=== PATIENT | female | born 1985 | race Caucasian/White ===

== ENCOUNTER → 2024-10-29 | Outpatient (CLI) | payer OTHER, SELFPAY ==
[2024-10-29 18:00] LABS: Basophils % (Auto) 0 % (0-2.5); Eosinophils # (Auto) 0.2 Thou/mm3 (0.0-0.5); Eosinophils % (Auto) 2 % (0-10); Hematocrit 38.1 % (36.0-46.0); Hemoglobin 11.7 g/dL (12.0-16.0); Immature Granulocytes % (Auto) 0 % (0-0); Immature Granulocytes Auto 0.04 Thou/mm3 (0.00-0.00); Lymphocytes # (Auto) 2.5 Thou/mm3 (1.0-4.8); Lymphocytes % (Auto) 19 % (10-50); Mean Corpuscular HGB Conc 30.7 g/dl (31.0-37.0); Mean Corpuscular Hemoglobin 21.3 pg (25.0-35.0); Mean Corpuscular Volume 69 fL (80-100); Monocytes # (Auto) 0.9 Thou/mm3 (0.0-0.8); Monocytes % (Auto) 7 % (0-12); Neutrophils # (Auto) 9.6 Thou/mm3 (1.8-7.7); Neutrophils % (Auto) 73 % (37-80); Nucleated Red Blood Cell % 0 /100 WBC (0); Platelet Count 254 Thou/mm3 (140-440); RDW Standard Deviation 45.1 fL (36.4-46.3); White Blood Count 13.2 Thou/mm3 (3.6-11.0)
[2024-10-29 18:24] LABS: Alanine Aminotransferase 28 U/L (10-49); Albumin, Serum 4.8 gm/dL (3.5-5.0); Albumin/Globulin Ratio 1.9 (1.2-2.2); Alkaline Phosphatase 108 U/L (46-116); Anion Gap 8 (7-16); Aspartate Amino Transferase 17 U/L (0-34); BUN/Creatinine Ratio 15 Ratio (12-20); Bilirubin,Total 0.3 mg/dL (0.3-1.2); Blood Urea Nitrogen 15 mg/dL (9-23); Calcium 9.5 mg/dL (8.3-10.6); Calcium (Corrected) 9.5 mg/dL (8.5-10.1); Carbon Dioxide 24.8 mMol/L (20.0-31.0); Chloride 103 mMol/L (98-107); Globulin 2.5 gm/dL (2.3-3.5); Glucose 152 mg/dL (74-106); Osmolality,Calculated 275 (275-295); Potassium 4.1 mMol/L (3.4-5.1); Sodium 136 mMol/L (136-145); Total Protein 7.3 gm/dL (5.7-8.2); Vitamin D 25 Hydroxy Total 14.5 ng/mL (7.3-40.2); eGFR > 60 See Note
== END | disposition home or self-care (01) ==
DX: Z01.89 Encounter for other specified special examinations (principal)
CPT/HCPCS: 36415; 80053; 81001; 82306; 85025

== ENCOUNTER 2025-05-29 17:32 | Emergency (ER) | payer OTHER, SELFPAY ==
[2025-05-29 17:33] VITALS: BMI 32.4
[2025-05-29 17:45] VITALS: BP 182/125; BP 200/93; PULSE 120; RESP 18; TEMP 36.8; O2SAT 98
--- NOTE | 2025-05-29 18:10 | XR_ITS ---
Examination: Left wrist 2 views TECHNIQUE: AP lateral left wrist 2 views Date and time: 2024 1856 hours INDICATIONS: Onset of wrist pain beginning 2 days ago. FINDINGS: Mild narrowing radiocarpal joint No fracture or dislocation. No foreign body No avascular necrosis IMPRESSION: Early osteoarthritis radiocarpal joint
--- NOTE | 2025-05-29 18:10 | XR_ITS ---
Examination: Hand, left 3 views Technique: Hand AP, oblique, lateral 3 views Date and time of exam: May 29, 2025, 1833 hours INDICATIONS: Onset thumb pain beginning 2 days ago FINDINGS: Mild juxta-articular bone demineralization. No fracture or dislocation. No erosive or other significant arthritic change Impression : No fracture or dislocation. No erosive or other significant arthritic change
--- NOTE | 2025-05-29 19:03 | EDRME_ITS ---
Rapid Medical Screening Exam RME Arrival date/time: 05/29/25 17:32 Chief Complaint: Hand/Wrist Problems Time Seen by Provider: 05/29/25 17:48 Vital signs: Vital Signs Temperature 98.3 F 05/29/25 17:45 Pulse Rate 120 H 05/29/25 17:45 Respiratory Rate 18 05/29/25 17:45 Blood Pressure 200/93 H 05/29/25 17:45 Pulse Oximetry (%) 98 05/29/25 17:45 Oxygen Delivery Method Room Air 05/29/25 17:45 Vital signs reviewed by provider: Yes RME Narrative: Patient is a 39-year-old female is in the emerged from concerns for left wrist pain. Patient states that she intermittently gets episodes of pain in her wrist however today it is getting worse and it is tender to the touch. Also noticed some swelling at her left wrist. Along the left thumb and left index finger. 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 Denies fevers chills nausea vomiting travel sick contacts history of IV drug use or stimulant use. Patient states that she gets really nervous in the medical setting. Denies any injuries.
[2025-05-29] MEDS: ACETAMINOPHEN 325 MG TABLET 650 MG PO (19:44)
[2025-05-29 19:47] VITALS: BP 174/121; PULSE 105; RESP 20; TEMP 36.7; O2SAT 100
--- NOTE | 2025-05-29 20:17 | EDNOTE_ITS ---
Upper Extremity Injury RME/HPI General Chief Complaint: Hand/Wrist Problems Stated Complaint: PAIN LEFT HAND SINCE YESTERDAY Time Seen by Provider: 05/29/25 17:48 Arrival date/time: 05/29/25 17:32 Patient is a 39-year-old female is in the emerged from concerns for left wrist pain. Patient states that she intermittently gets episodes of pain in her wrist however today it is getting worse and it is tender to the touch. Also noticed some swelling at her left wrist. Along the left thumb and left index finger. 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 Denies fevers chills nausea vomiting travel sick contacts history of IV drug use or stimulant use. Patient states that she gets really nervous in the medical setting. Denies any injuries Limitations: no limitations RME / HPI RME / HPI narrative: Patient is a 39-year-old female is in the emerged from concerns for left wrist pain. Patient states that she intermittently gets episodes of pain in her wrist however today it is getting worse and it is tender to the touch. Also noticed some swelling at her left wrist. Along the left thumb and left index finger. 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 Denies fevers chills nausea vomiting travel sick contacts history of IV drug use or stimulant use. Patient states that she gets really nervous in the medical setting. Denies any injuries. Related Data Home Medications ?Medication ?Instructions ?Recorded ?Confirmed loratadine 10 mg tablet (Claritin) 10 mg PO QDAY #0 ta bs 12/15/15 08/02/19 Previous Rx's ?Medication ?Instructions ?Recorded ipratropium bromide 21 mcg (0.03 See Rx Instructions . Route 08/02/19 %) nasal spray .COMPLEX #30 mL prednisone 20 mg tablet See Rx Instructions PO QAM # 9 tabs 08/02/19 prednisone 20 mg tablet See Taper PO QDAY 5 days #5 tabs 05/29/25 tramadol 50 mg tablet 50 mg PO Q6H PRN pain #10 ta bs 05/29/25 Allergies Allergy/AdvReac Type Severity Reaction Status Date / Time ciprofloxacin (From Cipro) Allergy Severe rash Verified 05/29/25 17:36 diphenhydramine (From Allergy Severe very Verified 05/29/25 17:36 Benadryl) restless meloxicam Allergy Severe Hives Verified 05/29/25 17:37 cefuroxime AdvReac Severe MIGRAINES,V Verified 05/29/25 17:36 OMITING Review of Systems Review of Systems Systems Reviewed: All systems reviewed, normal except as documented Constitutional Constitutional: Reports system reviewed and no additional complaints, except as documented and Reports as per HPI Cardiovascular Cardiovascular: Reports system reviewed and no additional complaints, except as documented and Reports as per HPI Respiratory Respiratory: Reports system reviewed and no additional complaints, except as documented and Reports as per HPI Gastrointestinal Gastrointestinal: Reports system reviewed and no additional complaints, except as documented and Reports as per HPI Musculoskeletal Musculoskeletal: Reports other (Left wrist pain left hand pain) Neurologic Neurologic: Reports system reviewed and no additional complaints, except as documented and Reports as per HPI Past Medical History Past Medical History CARDIAC: Negative Congestive Heart Failure RESPIRATORY: Negative Chronic Obstructive Pulmonary Disease (COPD) GENITOURINARY: Negative Renal Disease ENDOCRINE: Negative Diabetes Mellitus Type 1 or Diabetes Mellitus Type 2 Social History SMOKING STATUS: Never smoker ED Exam General Limitations: Present no limitations General appearance: Present alert, in no apparent distress and other (Patient is awake alert oriented not in distress nontoxic looking well-hydrated well- nourished) Head Head exam: Present atraumatic, normocephalic and normal inspection Eye Eye exam: Present normal appearance, PERRL and EOMI ENT ENT exam: Present normal exam, normal oropharynx and mucous membranes moist Neck Neck exam: Present normal inspection, full ROM and trachea midline Chest Chest inspection: Present normal inspection and symmetric chest wall rise; Absent tenderness Respiratory Respiratory exam: Present normal lung sounds bilaterally; Absent respiratory distress, wheezes, stridor, accessory muscle use or prolonged expiratory phase Cardiovascular Cardiovascular exam: Present regular rate, normal rhythm and normal heart sounds; Absent bradycardia, tachycardia, irregular rhythm, systolic murmur or diastolic murmur Abdominal Exam Abdominal exam: Present soft and normal bowel sounds Extremities Exam Extremities exam: Present normal inspection and full ROM Expanded Upper Extremity Exam Forearm/Wrist exam: Present tenderness, swelling and other (ROM intact neurovascular intact); Absent abrasion, laceration, ecchymosis, deformity, crepitus, dislocation, erythema, tenderness over anatomical snuff box or pain with axial thumb loading Hand exam: Present tenderness, swelling and other (ROM intact neurovascular intact positive phalen and tinels signs suggestive of carpal tunnel syndrome); Absent abrasion, laceration, skin avulsion, ecchymosis, deformity, crepitus, dislocation, erythema, amputation, nail avulsion or subungual hematoma Back Exam Back exam: Present normal inspection and full ROM Neurological Exam Neurological exam: Present alert, oriented X3, CN II-XII intact, normal gait and reflexes normal; Absent motor sensory deficit Psychiatric Psychiatric exam: Present normal affect and normal mood Skin Skin exam: Present warm, dry, intact and normal color Course Quality Measures none Orders Category Date Time Status XR hand comp LT min 3V Stat Exams 05/29/25 18:10 Completed XR wrist LT 2V Stat Exams 05/29/25 18:10 Completed Acetaminophen Tab [Tylenol Tab] Med 05/29/25 18:00 Discontinued 650 mg PO X1 ONE Dexamethasone Inj [Decadron Inj] Med 05/29/25 20:12 Discontinued 10 mg PO X1 ONE Vital Signs Vital signs: Vital Signs Temperature 98.3 F 05/29/25 17:45 Pulse Rate 120 H 05/29/25 17:45 Respiratory Rate 18 05/29/25 17:45 Blood Pressure 200/93 H 05/29/25 17:45 Pulse Oximetry (%) 98 05/29/25 17:45 Oxygen Delivery Method Room Air 05/29/25 17:45 Patient oxygen saturation is 98% in room air patient BP was 200/93 was rechecked and noted to be 180/80 patient is asymptomatic no headache no nausea no vomiting no chest pain patient is anxious patient refused to take any medication and stated that she will take his medication at home for anxiety and will follow-up with his primary care physician for his blood pressure Extremity Injury MDM Narrative MDM Narrative:: Patient is a 39-year-old female is in the emerged from concerns for left wrist pain. Patient states that she intermittently gets episodes of pain in her wrist however today it is getting worse and it is tender to the touch. Also noticed some swelling at her left wrist. Along the left thumb and left index finger. 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 Denies fevers chills nausea vomiting travel sick contacts history of IV drug use or stimulant use. Patient states that she gets really nervous in the medical setting. Denies any injuries physical examination patient is awake alert oriented not in distress nontoxic looking well-hydrated well-nourished nourished is mild tenderness on the left wrist left thumb and left hand mild swelling no crepitation no deformity no cellulitis no snuffbox tenderness ROM intact neurovascular intact positive phalnes and tinnels signs suggestive of carpal tunnel syndrome patient was applied with preformed wrist splint patient tolerated well neurovascular intact I have a long discussion regarding patient blood pressure noted to be 180/80 patient do not wanted to treat his blood pressure and states that the high blood pressure is due to her high anxiety and she will take his medication for anxiety at home and she will follow-up with his primary care physician the importance to follow-up the blood pressure was discussed with the patient and patient understood very well she will check his blood pressure twice a day and she will very inform to check his blood pressure every 12 hours and if the blood pressure greater than 160/100 or become symptomatic she will return to the emergency room immediately or call 911 she was prescribed with tramadol for pain she was given dexamethasone here and Tylenol for any worsening symptoms she will return in the emergency room immediately or call 911 she will be follow-up with PCP if to be referred to Ortho for left carpal tunnel syndrome Patient was discharged with comfortable condition walking with stable gait. Patient verbalized no further complains explained diagnosis and answered patient question. Patient is comfortable with the proposed management plan including the need to follow up with his/her primary care physician and any specialist if applicable Discussed patient for any urgent condition or worsening sx, He/She needed to go to emergency room immediately or call 911. Patient acknowledge the responsibility to follow up as instructed and to monitor her/his symptoms. For any persistence of the symptoms for more than 3-5 days return precaution advised. Discussed the result of the test and was given printed discharge instruction Patient data External records reviewed:: [facility] previous records Clinical information provided by:: patient Social determinants that could affect healthcare access:: none Patient has the following chronic illnesses:: None How is presenting disease/condition affected by chronic disease/condition?: no chronic disease Evaluation data The following diagnostics were reviewed and interpreted by me:: radiology exam(s) Lab and/or radiology exams considered but not ordered:: Reviewed Interpretation Summary: Reviewed Medications / Prescriptions Medications or Prescriptions considered but not ordered:: Given Medication administrations:: Medication Administration History Discontinued Medications Acetaminophen (Acetaminophen 325 Mg Tablet) 650 mg PO X1 ONE Stop: 05/29/25 18:01 Last Admin: 05/29/25 19:44 Dose: 650 mg Documented By: Dexamethasone Sodium Phosphate (Dexamethasone Sod Phos Inj 10 Mg/Ml Vial) 10 mg PO X1 ONE Stop: 05/29/25 20:13 Given Consultations Consultation(s) initiated? (list below): No Diagnosis Upper Extremity Injury Differential Diagnosis: other (sprain contusion carpal tunnel syndrome) Most likely diagnosis given after review of the tests above:: Carpal tunnel syndrome Admission Indicated Admission indicated?: not indicated Explain why admission is indicated or not indicated:: Not indicated Admission Request Was there a request for admission?: No Admission Attestation Admission request attestation: Not indicated Disposition Plan Disposition Plan: Discharge Discharge Attestation Discharge Attestation: The patient and all family members were given an opportunity to ask questions and understood the discharge instructions. Discharge instructions specifically effects, indications for sooner follow up or return to the emergency department, and the expected course of current diagnosis. Patient condition: Stable Discharge Plan Plan Patient Disposition: HOME (Self Care) Patient condition on transfer: Stable Prescriptions/Referrals Prescriptions/Med Rec: New tramadol 50 mg tablet 50 mg PO Q6H MDD max 4 tabs per day PRN (Reason: pain) Qty: 10 0RF prednisone 20 mg tablet See Taper PO QDAY 5 Days Qty: 5 0RF Taper: Prednisone Taper 20 mg DAILY for 2 Days and 0 Hour 10 mg DAILY for 2 Days and 0 Hour 5 mg DAILY for 7 Days and 0 Hour No Action ipratropium bromide 0.03 % spray,non-aerosol See Rx Instructions .Route .COMPLEX Qty: 30 0RF Rx Instructions: 2 sprays to each nostril q6-8 hours prn congestion; wait 30 seconds between sprays prednisone 20 mg tablet See Rx Instructions PO QAM Qty: 9 0RF Rx Instructions: PO QAM; Take 40mg (2 tabs) PO QAM x 3 days, then 20mg (1 tab) PO QAM x 3 days loratadine [Claritin] 10 MG tablet 10 mg PO QDAY Qty: 0 Referrals: No Primary/Family,Physician [Primary Care Provider] - In 1 week Problem List Clinical Impression: Hand pain, left, Carpal tunnel syndrome, Elevated blood pressure reading without diagnosis of hypertension Patient/Caregiver Discharge Instructions Education Materials: Carpal Tunnel Syndrome, ED Hypertension, To Be Confirmed, ED RICE Additional Instructions: Follow-up with your primary care physician in 2 days for reevaluation and to be referred to orthopedic surgeon for further evaluation and treatment of carpal tunnel syndrome worsening symptoms or any emergent concerns such as numbness weakness or tingling sensation call 911 or go to the nearest emergency room it is also important to follow-up with your primary care physician to monitor and possible start on medication for hypertension continue to monitor your blood pressure twice a day and return to the emergency room if your blood pressure greater than 160/100 or become symptomatic ice pack and warm compress as needed for pain continue medication as directed Print Language: Urdu Stand Alone Forms: [facility] Award Info., Patient Portal Info Letter PA/YOSELIN Supervising Physician PA/YOSELIN Supervising Physician: Dr. Mcbride
== END 2025-05-29 20:41 | disposition home or self-care (01) ==
PROVIDERS: Emergency Provider Emergency Medicine
DX: G56.02 Carpal tunnel syndrome, left upper limb (principal); R03.0 Elevated blood-pressure reading, without diagnosis of hypertension
CPT/HCPCS: 73100; 73130; 99283; A9270